=== PATIENT | male | born 1970 | race Caucasian/White ===

== ENCOUNTER → 2016-10-23 | Outpatient (CLI) | payer BC ==
--- NOTE | 2016-10-23 16:52 | MR ---
Unenhanced MRI of the Cervical Spine Clinical History: 46-year-old male with right-sided arm pain. Evaluate for a disk herniation or steno sis. ICD 10 Diagnostic Code: M54.12. Technique: Sagittal T1 FLAIR, FSE T2, and T2 STIR sequences were obtained from the level of clivus ca udally to the cephalad aspect of T4, and are supplemented by stacked axial 3-D merge with ASSET and T 2 CUBE sequences. Comparison Study: None. Findings: The vertebral body heights and posterior alignments are maintained. There is some straighte suad of the normal cervical lordosis, which may reflect underlying muscle spasm or be secondary to re cumbent positioning. The bone marrow signal is normal. The spinal cord caliber and signal are normal. Specifically, there is no cord edema, myelomalacia, or syrinx. The visualized infratentorial structu res and the craniocervical junction appear normal. The visualized prevertebral soft tissues are gross ly unremarkable. At the C1-C2 level, there is no central canal stenosis. The predental space is normal. At the C2-C3 level, there is a patent central canal and neural foramina. At the C3-C4 level, there is no central canal, lateral recess, or neural foraminal impingement. At the C4-C5 level, there is no central canal or neural foraminal impingement; a tiny inconsequential disk bulge is seen with ample CSF ventral and dorsal to the cord. At the C5-C6 level, there is mild loss of disk space height. There is also mild bilateral facet hyper trophy with uncovertebral hypertrophy resulting in a moderate degree of bilateral neural foraminal st enosis. Broad-based circumference disk bulging slightly effaces the ventral thecal sac; however, ther e still ample CSF ventral and dorsal to the cord. At the C6-C7 level, there is mild loss of disk space height. There is mild bilateral facet hypertroph y with some uncovertebral hypertrophy resulting in mild narrowing of the neural foramina. There is mi ld dorsal disk bulging which slightly effaces the ventral thecal sac, however there is ample CSF vent ral and dorsal to the cord. The C7-T1 level is normal. The visualized portions of the upper thoracic spine are notable only for a minimal superior cortical endplate deformity at T3 with a tiny Schmorl's node. Impression: 1. Straightening of the normal cervical lordosis. 2. Tiny inconsequential disk bulges at several levels. 3. Moderate bilateral neural foraminal stenosis at C5-C6 secondary to facet hypertrophy and uncoverte bral osteophyte formation. 4. Mild bilateral neuroforaminal stenosis at C6-C7 secondary to uncovertebral hypertrophy.
== END ==
LOC: FIMAGING 15:16
PROVIDERS: ATTEND Physical Medicine & Rehabilitation
DX: M54.12 Radiculopathy, cervical region (principal); M50.20 Other cervical disc displacement, unspecified cervical region; M48.02 Spinal stenosis, cervical region; M25.78 Osteophyte, vertebrae